=== PATIENT | female | born 1960 | race Caucasian/White ===

== ENCOUNTER → 2016-08-02 | Outpatient (CLI) | payer BC, OTHER ==
[~2016-08-02] MED LIST: CEPH-571 PO; CHOL100010 PO; FLAX1CAP11 PO; LEVO75TA5 PO; LORA10CA2 PO; MULT-506 PO; NXM/40 PO; TRAM-10 PO
--- NOTE | 2016-08-02 16:45 | MAMMOGRAPHY REPORT ---
BILATERAL DIGITAL SCREENING MAMMOGRAM TOMOSYNTHESIS WITH CAD: 08/02/2016 TECHNIQUE: Breast tomosynthesis in addition to standard 2D mammography was performed. Current study was also evaluated with a Computer Aided Detection (CAD) system. COMPARISON: Comparison is made to exams dated: 07/31/2015 mammogram, 07/28/2013 mammogram, 07/29/2014 dea mogram, 07/27/2012 mammogram, and 07/19/2010 mammogram - [facility]. BREAST COMPOSITION: The tissue of both breasts is almost entirely fatty. FINDINGS: No suspicious masses, calcifications, or areas of architectural distortion are noted in e ither breast. There has been no significant interval change compared to prior exams. IMPRESSION: ACR BI-RADS CATEGORY 1: NEGATIVE There is no mammographic evidence of malignancy. A 1 year screening mammogram is recommended. The p atient will receive written notification of the results. Approximately 10% of breast cancers are not detected with mammography. A negative mammographic repor t should not delay biopsy if a clinically suggestive mass is present. Lilian Higuera M.D. ah/:08/02/2016 16:15:53 Material Processor: Génesis KWONG(R)(M), [facility] letter sent: Normal 1/2 BI-RADS Code: ACR BI-RADS Category 1: Negative
== END | disposition home or self-care (01) ==
LOC: C.MAMM 14:23
PROVIDERS: ATTEND Obstetrics & Gynecology
DX: Z12.31 Encounter for screening mammogram for malignant neoplasm of breast (principal)

== ENCOUNTER 2017-03-24 19:22 | Emergency (ER) | payer BC, OTHER ==
[~2017-03-24] VITALS: Ht 157.5 cm; Wt 114.0 kg
[~2017-03-24 19:22] MED LIST changes: -CEPH-571 PO; -NXM/40 PO; -TRAM-10 PO
[2017-03-24 19:35] VITALS: TEMP 36.8; Ht 157.5 cm; Wt 114.0 kg
[2017-03-24] MEDS ORDERED: TRAMADOL HCL 50 MG TAB PO STA (20:26)
[2017-03-24] MEDS ORDERED: ACETAMINOPHEN 500 MG TAB PO STA (20:26)
[2017-03-24] MEDS ORDERED: SODIUM CHLORIDE 0.9% 1000ML 1,000 ML IV STA (20:26)
[2017-03-24] MEDS ORDERED: KETOROLAC TROMETHAMINE 30 MG/ML VIAL IV STA (20:26)
[2017-03-24 20:34] LABS: BASO % 0.4 %; BASO ABS # 0.03 K/uL (0-0.2); COMPLETE YES; IG% 0.1 %; LYMPH % 32.2 %; LYMPH ABS # 2.27 K/uL (1.2-3.4); MEAN CORPUSCULAR HEMOGLOBIN 30.8 pg (25-34); MEAN CORPUSCULAR HGB CONC 33.5 g/dl (32-36); MEAN PLATELET VOLUME 10.5 fL (7.4-10.4); MONO % 5.5 %; NEUT % 59.8 %; PLATELET COUNT 282 K/uL (130-400); WHITE BLOOD COUNT 7.06 K/uL (4.8-10.8)
--- NOTE | 2017-03-24 20:50 | DIAGNOSTIC IMAGING REPORT ---
CHEST ONE VIEW PORTABLE CLINICAL HISTORY: Flank pain. Hematuria. COMPARISON STUDY: Chest radiograph August 01, 2012. FINDINGS: A calcific density along the superolateral aspect of the left humeral head likely reflects calcific tendinitis of the left rotator cuff. There is no pneumothorax or pleural effusion. There is no consolidation. Linear left lung opacities suggests subsegmental atelectasis. Cardiomediastinal silhouette is normal. There is no evidence of pulmonary edema. IMPRESSION: No acute cardiopulmonary findings. Electronically signed by: Alex Omalley M.D. 03/24/2017 8:49 PM Dictated Date/Time: 03/24/2017 8:48 PM
[2017-03-24 20:55] LABS: BUN/CREATININE RATIO 9.5 (10-20); CALCIUM 10.1 mg/dl (8.5-10.1); CREATININE 0.63 mg/dl (0.60-1.20); POTASSIUM 3.5 mmol/L (3.5-5.1)
--- NOTE | 2017-03-24 21:08 | EMERGENCY ROOM VISIT NOTE ---
History Report prepared by Aneudy: Vidal Ríos Under the Supervision of: Dr. Edward Shepherd M.D. First contact with patient: 19:58 Chief Complaint: FLANK PAIN Stated Complaint: SEVERE PAIN L SIDE History of Present Illness The patient is a 56 year old white female with a past medical history of hyperthyroid, acid reflux, cholecystectomy, tubal ligation, and carpal tunnel who presents to the ED with a cc of waxing/waning left flank pain beginning four days ago. She rates her pain as an 8/10 and admits that her symptoms are relieved with rest. She reports that her pain starts in her left back and radiates to her left abdomen. The patient admits that she has been using Bengay and Tylenol, but denies relief of symptoms. She reports that she believed her symptoms were getting better, but admits that her symptoms worsened today. The patient states that her last bowel movement was at 1300 and admits it was diarrhea. She reports she has been urinating normally. Positive diarrhea. Negative cough, fevers, chills, alcohol/tobacco/drug use, rash, LE swelling, urinary symptoms. Source of History: patient Onset: two days ago Position: other (left flank) Symptom Intensity: 8/10 Timing: waxes/wanes Modifying Factors (Relieving): tylenol, other (Bengay) Associated Symptoms: + abdominal pain, + diarrhea, No fevers, No chills, No cough, No urinary symptoms, No rash Review of Systems See HPI for pertinent positives and negatives. A total of ten systems were reviewed and were otherwise negative. Past Medical & Surgical Medical Problems: (1) Gastroesophageal reflux disease (2) Skin problems Family History Patient reports no known family medical history. Social History Smoking Status: Never Smoker Smokeless Tobacco Use: No Alcohol Use: none Drug Use: none Marital Status: Housing Status: lives with family Occupation Status: employed Current/Historical Medications Scheduled Cephalexin (Keflex), 1 CAP PO BID Cholecalciferol (Vitamin D), 1,000 INTER.UNIT PO QAM Esomeprazole Magnesium (Nexium), 40 MG PO DAILY Flaxseed (Linseed) (Flax Seed Oil), 1 CAP PO QAM Levothyroxine Sodium (Levothyroxine Sodium), 1 TAB PO QAM Loratadine (Claritin), 10 MG PO HS Multivitamin (Multivitamin), 1 TAB PO QAM Scheduled PRN Tramadol (Ultram), 50 MG PO Q8H PRN for Pain Allergies Coded Allergies: No Known Allergies (Verified , 03/24/17) Uncoded Allergies: NKDA (Allergy, Unknown, 12/14/03) Physical Exam Vital Signs Date Time Temp Pulse Resp B/P (MAP) Pulse Ox O2 Delivery O2 Flow Rate FiO2 03/24/17 22:07 66 18 122/71 96 03/24/17 21:08 68 03/24/17 20:53 68 18 123/47 98 Room Air 03/24/17 19:35 36.8 66 20 97 Room Air Physical Exam GENERAL: Awake, alert, well-appearing, NAD HENT: Normocephalic, atraumatic. EYES: Normal conjunctiva. Sclera non-icteric. NECK: Supple. No nuchal rigidity. FROM. RESPIRATORY: CTAB, no rhonchi, wheezing, crackles CARDIAC: RRR, no MRG ABDOMEN: Soft, ND, BS+, Mild reproducible RUQ TTP. No pain in ribs. No focal tenderness in any other area. No swelling. MSK: No chest wall TTP, no LE edema NEURO: GCS 15, CN 2-12 intact, moves all 4s on command SKIN: No rash or jaundice noted. No eruption. Medical Decision & Procedures ER Provider Diagnostic Interpretation: X-ray: Per my interpretation, radiologist review. CHEST ONE VIEW PORTABLE CLINICAL HISTORY: Flank pain. Hematuria. COMPARISON STUDY: Chest radiograph August 01, 2012. FINDINGS: A calcific density along the superolateral aspect of the left humeral head likely reflects calcific tendinitis of the left rotator cuff. There is no pneumothorax or pleural effusion. There is no consolidation. Linear left lung opacities suggests subsegmental atelectasis. Cardiomediastinal silhouette is normal. There is no evidence of pulmonary edema. IMPRESSION: No acute cardiopulmonary findings. Electronically signed by: Alex Omalley M.D. 03/24/2017 8:49 PM Dictated Date/Time: 03/24/2017 8:48 PM Laboratory Results 03/24/17 20:20 Red Blood Count 5.00, Mean Corpuscular Volume 92.0, Mean Corpuscular Hemoglobin 30.8, Mean Corpuscular Hemoglobin Concent 33.5, Mean Platelet Volume 10.5, Neutrophils (%) (Auto) 59.8, Lymphocytes (%) (Auto) 32.2, Monocytes (%) (Auto) 5.5, Eosinophils (%) (Auto) 2.0, Basophils (%) (Auto) 0.4, Neutrophils # (Auto) 4.22, Lymphocytes # (Auto) 2.27, Monocytes # (Auto) 0.39, Eosinophils # (Auto) 0.14, Basophils # (Auto) 0.03 03/24/17 20:20 Test 03/24/17 20:20 03/24/17 20:43 03/24/17 20:53 White Blood Count 7.06 K/uL (4.8-10.8) Red Blood Count 5.00 M/uL (4.2-5.4) Hemoglobin 15.4 g/dL (12.0-16.0) Hematocrit 46.0 % (37-47) Mean Corpuscular Volume 92.0 fL (80-100) Mean Corpuscular Hemoglobin 30.8 pg (25-34) Mean Corpuscular Hemoglobin Concent 33.5 g/dl (32-36) Platelet Count 282 K/uL (130-400) Mean Platelet Volume 10.5 fL (7.4-10.4) Neutrophils (%) (Auto) 59.8 % Lymphocytes (%) (Auto) 32.2 % Monocytes (%) (Auto) 5.5 % Eosinophils (%) (Auto) 2.0 % Basophils (%) (Auto) 0.4 % Neutrophils # (Auto) 4.22 K/uL (1.4-6.5) Lymphocytes # (Auto) 2.27 K/uL (1.2-3.4) Monocytes # (Auto) 0.39 K/uL (0.11-0.59) Eosinophils # (Auto) 0.14 K/uL (0-0.5) Basophils # (Auto) 0.03 K/uL (0-0.2) RDW Standard Deviation 45.6 fL (36.4-46.3) RDW Coefficient of Variation 13.5 % (11.5-14.5) Immature Granulocyte % (Auto) 0.1 % Immature Granulocyte # (Auto) 0.01 K/uL (0.00-0.02) Anion Gap 8.0 mmol/L (3-11) Est Creatinine Clear Calc Drug Dose 117.7 ml/min Estimated GFR () 115.4 Estimated GFR (Non- 99.6 BUN/Creatinine Ratio 9.5 (10-20) Calcium Level 10.1 mg/dl (8.5-10.1) Total Bilirubin 0.6 mg/dl (0.2-1) Direct Bilirubin 0.2 mg/dl (0-0.2) Aspartate Amino Transf (AST/SGOT) 23 U/L (15-37) Alanine Aminotransferase (ALT/SGPT) 37 U/L (12-78) Alkaline Phosphatase 65 U/L (45-117) Total Protein 8.6 gm/dl (6.4-8.2) Albumin 4.2 gm/dl (3.4-5.0) Lipase 188 U/L (73-393) Bedside Troponin I < 0.030 ng/ml (0-0.045) Urine Color YELLOW Urine Appearance CLEAR (CLEAR) Urine pH 6.0 (4.5-7.5) Urine Specific [place] 1.009 (1.000-1.030) Urine Protein NEG (NEG) Urine Glucose (UA) NEG (NEG) Urine Ketones TRACE (NEG) Urine Occult Blood NEG (NEG) Urine Nitrite NEG (NEG) Urine Bilirubin NEG (NEG) Urine Urobilinogen NEG (NEG) Urine Leukocyte Esterase MODERATE (NEG) Urine WBC (Auto) 10-30 /hpf (0-5) Urine RBC (Auto) 0-4 /hpf (0-4) Urine Hyaline Casts (Auto) 0 /lpf (0-5) Urine Epithelial Cells (Auto) 10-20 /lpf (0-5) Urine Bacteria (Auto) NEG (NEG) Laboratory results reviewed by me Medications Administered Medications (Trade) Dose Ordered Sig/Gokul Route Start Time Stop Time Status Last Admin Dose Admin Sodium Chloride 1,000 ml @ 999 mls/hr Q1H1M STAT IV 03/24/17 20:26 03/24/17 21:26 DC 03/24/17 20:43 999 MLS/HR Ketorolac Tromethamine (Toradol Inj) 30 mg NOW STAT IV 03/24/17 20:26 03/24/17 20:28 DC 03/24/17 20:44 30 MG Acetaminophen (Tylenol Tab) 1,000 mg NOW STAT PO 03/24/17 20:26 10/2/17 20:28 DC 03/24/17 20:44 1,000 MG Tramadol HCl (Ultram Tab) 25 mg NOW STAT PO 03/24/17 20:26 03/24/17 20:28 DC 03/24/17 20:44 25 MG Cephalexin Monohydrate (Keflex Cap) 500 mg NOW ONCE PO 03/24/17 21:30 03/24/17 21:31 DC 03/24/17 21:33 500 MG ECG Indication: back/shoulder pain Rate (beats per minute): 65 Rhythm: normal sinus Findings: T-wave inversion (Inferior, AVF), left axis deviation, other (Normal intervals. T Wave flattening laterally. AVF.) Comparison ECG Date: 08/01/12 Change: no significant change Change: AVF TWI may be new. ED Course 2008: The patient was evaluated in room C07. A complete history and physical exam was performed. 2147: I reevaluated the patient. Discussed results and discharge instructions: She verbalized understanding and agreement. The patient is ready for discharge. Medical Decision Differential diagnosis: Etiologies such as appendicitis, diverticulitis, PUD, biliary pathology, UTI, pancreatitis, obstruction, mesenteric ischemia, aortic pathology, infections, inflammatory bowel disease, renal colic, PNA, URI, Bronchitis, Shingles, as well as others were entertained. Patient was seen and evaluated the bedside. Patient is very well-appearing. Patient has no prior history of kidney stones. Patient is not noted any rashes. Patient did have blood work, EKG, troponin, chest x-ray. Patient did not have any abnormalities on her blood work. LFTs and lipase were within normal limits. Patient did not have any blood in her urine. Patient did have questionable UTI although possibly a contaminant. I explained this to the patient she was given her first dose of antibiotic was told to take this at home. Patient was told that given her normal kidney function w/o blood in urine , less likely stone. Patient was told to watch for skin manifestations in event she does develop shingles. Patient was able tolerate by mouth without issue. Patient a negative chest x-ray. Patient's EKG did show a new T-wave inversion however she also had an old one. Patient was informed of this finding was told to follow-up with her PCP. Patient had a negative troponin given the chronicity of her symptoms with a negative troponin less likely ACS. Patient Wells 0, less likely PE. Patient was given strict follow-up, discharge, and return precautions. Patient discharged home. Medication Reconcilliation Current Medication List: was personally reviewed by me Blood Pressure Screening Patient's blood pressure: Normal blood pressure Impression Primary Impression: Left flank pain Additional Impression: UTI (urinary tract infection) Scribe Attestation The scribe's documentation has been prepared under my direction and personally reviewed by me in its entirety. I confirm that the note above accurately reflects all work, treatment, procedures, and medical decision making performed by me. Departure Information Dispostion Home / Self-Care Prescriptions Tramadol (Ultram) 50 Mg Tab 50 MG PO Q8H Y for Pain, #9 TAB Prov: Edward Shepherd M.D. 03/24/17 Cephalexin (KEFLEX) 500 Mg Cap 1 CAP PO BID for 7 Days, #14 CAP Prov: Edward Shepherd M.D. 03/24/17 Referrals Robby Yin M.D. (PCP) Forms HOME CARE DOCUMENTATION FORM, IMPORTANT VISIT INFORMATION Patient Instructions ED Flank Pain Uncertain Cause, ED UTI Cystitis Female, [facility] Additional Instructions Please return to the emergency department if you have worsening or recurrent symptoms not amenable to at-home treatment. Please call for a follow-up appointment with her primary care physician. Please take your medications as prescribed. If you have other concerns and/or complaints please feel free to also call your primary care physician's office or return the ED for further evaluation, management, and treatment. You may take 600 mg Ibuprofen every 6 hours as needed for pain with food for no more than 2 consecutive days. You may take tylenol 1000mg every 6 hours as needed for pain. You may take motrin and tylenol separately or at the same time. Take tramadol for breakthrough pain. You have been examined and treated today on an emergency basis only. This is not a substitute for, or an effort to provide, complete comprehensive medical care. It is impossible to recognize and treat all injuries or illnesses in a single emergency department visit. It is therefore important that you follow up closely with [facility]. Call as soon as possible for an appointment. Thank you for your time and consideration. I look forward to speaking with you again soon. Please don't hesitate to call us if you have any questions. Problem Qualifiers Additional Impression: UTI (urinary tract infection) Urinary tract infection type: acute cystitis Hematuria presence: without hematuria Qualified Codes: N30.00 - Acute cystitis without hematuria
[2017-03-24 21:09] LABS: URINE APPEARANCE CLEAR (CLEAR); URINE BILIRUBIN NEG (NEG); URINE COLOR YELLOW; URINE NITRITE NEG (NEG); URINE SPECIFIC GRAVITY 1.009 (1.000-1.030); UROBILINOGEN NEG (NEG)
[2017-03-24 21:12] LABS: MANUAL MICROSCOPIC REQUIRED? NO; REVIEW REQ? NO
[2017-03-24] MEDS ORDERED: NXM/40 PO (21:26)
[2017-03-24] MEDS ORDERED: CEPHALEXIN MONOHYDRATE 250 MG CAP PO ONE (21:30)
[2017-03-24] MEDS ORDERED: CEPH-571 PO (21:34)
[2017-03-24] MEDS ORDERED: TRAM-10 PO (21:34)
[2017-03-24 22:07] VITALS: BP 122/71; PULSE 66; O2SAT 96
== END 2017-03-24 22:08 | disposition home or self-care (01) ==
LOC: C.EDB 19:23 → C.EDC 22:08
DX: N39.0 Urinary tract infection, site not specified (principal); E05.90 Thyrotoxicosis, unspecified without thyrotoxic crisis or storm; K21.9 Gastro-esophageal reflux disease without esophagitis; Z90.49 Acquired absence of other specified parts of digestive tract; Z98.51 Tubal ligation status; Z79.899 Other long term (current) drug therapy

== ENCOUNTER → 2017-06-04 | Day surgery (SDC) | payer BC, OTHER ==
[2017-05-28 15:15] VITALS: Ht 157.5 cm; Wt 112.3 kg
[~2017-06-04] VITALS: Ht 157.5 cm; Wt 112.3 kg
[~2017-06-04] MED LIST changes: +LIDOCAINE HCL 2% 2 ML VIAL (20MG/ML) ONE; +NXM/40 PO; +PROPOFOL IV EMULSION 10 MG/ML 20 ML VIAL IV ONE; +SUCR5SUS PO
--- NOTE | 2017-06-04 12:15 | Endo History and Physical ---
History & Physical Date of Service: Jun 04, 2017. Chief Complaint: epigastric burning sensation Referring Physician: Dr. Yin History of Present Illness epigastric pain Past Surgical History Hx Cardiac Surgery: No Hx Internal Defibrillator: No Hx Pacemaker: No Hx Abdominal Surgery: Yes (TUBAL LIGATION, LAP HEATHER) Hx of Implantable Prosthesis: No Hx Post-Op Nausea and Vomiting: No Hx Cancer Surgery: No Hx Thoracic Surgery: No Hx Orthopedic: Yes (RT/LEFT CTR) Hx Urinary Tract Surgery: No Family History None Social History Smoking Status: Never Smoker Hx Substance Use: No Hx Alcohol Use: Yes (OCCASIONALLY) Allergies Coded Allergies: No Known Allergies (Verified , 06/04/17) Uncoded Allergies: NKDA (Allergy, Unknown, 12/14/03) Current Medications Reported Home Medications Medications Dose Route/Sig Max Daily Dose Days Date Category Carafate (Sucralfate) 1 Gm/10 Ml Susp 1 Gm PO BID 05/28/17 Reported Vitamin D (Cholecalciferol) 1,000 Unit Tab 1 Tab PO QAM 05/28/17 Reported Nexium (Esomeprazole Magnesium) 40 Mg Capcr 40 Mg PO QAM 03/24/17 Reported Flax Seed Oil (Flaxseed (Linseed)) 1 Cap Cap 1 Cap PO QAM 01/10/16 Reported Multivitamin (Multivitamins) Tab 1 Tab PO QAM 01/10/16 Reported Claritin (Loratadine) 10 Mg Cap 10 Mg PO HS 01/10/16 Reported Levothyroxine Sodium 75 Mcg Tab 1 Tab PO QAM 90 01/10/16 Reported Vital Signs Weight (Kilograms): 112.27 Height (Feet): 5 Height (Inches): 2 Date Time Temp Pulse Resp B/P (MAP) Pulse Ox O2 Delivery O2 Flow Rate FiO2 06/04/17 12:07 36.7 71 18 139/67 (91) 98 Room Air Physical Exam General Appearance: WD/WN, no apparent distress Assessment and Plan EGD today
--- NOTE | 2017-06-04 12:43 | Discharge Instructions ---
Endoscopy Patient Instructions Date / Procedure(s) Performed Jun 04, 2017. EGD Allergy Information Coded Allergies: No Known Allergies (Verified , 06/04/17) Uncoded Allergies: NKDA (Allergy, Unknown, 12/14/03) Discharge Date / Findings Jun 04, 2017. normal endoscopy Medication Instructions Restart Stopped Medication(s): OK to resume all medications as above Provider Instructions Activity Restrictions - No exercising or heavy lifting for 24 hours. - Do not drink alcohol the day of the procedure. - Do not drive a car or operate machinery until the day after the procedure. - Do not make any important decisions or sign important papers in 24 hours after the procedure. Following Day: - Return to full activity which may include returning to work/school. Diet Start your diet with liquids and light foods (jello, soup, juice, toast). Then eat your usual diet if not nauseated. Treatment For Common After Affects For mild abdominal pain, bloating, or excessive gas: - Rest - Eat lightly - Lie on right side Follow-Up Information Follow-up with Dr. Yin as scheduled Anesthesia Information What You Should Know You have had a procedure that required some medicine to reduce anxiety and discomfort. This treatment is called moderate sedation. After receiving the treatment, you may be sleepy, but you will be able to breathe on your own. The effects of the treatment may last for several hours. Follow these instructions along with Activity/Diet recommendations noted above: * Do NOT do anything where dizziness or clumsiness would be dangerous. * Rest quietly at home today, then you can be up and about tomorrow. * Have a responsible person stay with you the rest of today. * You may have had an I.V. today. If so, you may take the dressing off later today. Recommendations Call your doctor if: * Trouble breathing * Continuous vomiting for more than 24 hours * Temperature above 101 degrees * Severe abdominal pain or bloating * Pain not relieved by pain medicine ordered * There is increased drainage or redness from any incision * A large amount of rectal bleeding greater than 2-3 tablespoons. (If you had a polyp/s removed or have hemorrhoids, a small amount of blood - from the rectum is to be expected.) * You have any unanswered questions or concerns. IN THE EVENT OF A SERIOUS EMERGENCY, GO TO THE NEAREST EMERGENCY ROOM Your discharge instructions were prepared by provider Fiorella Bacon. Patient Instructions Signature Page Codi Sidchaddmanasa Patient (or Guardian) Signature/Date: I have read and understand the instructions given to me by my caregivers. Caregiver/RN/Doctor Signature/Date: The above-named patient and/or guardian has received patient instructions on this date. + Original Patient Signature Page (only) stays with chart. Please make copy for patient.
--- NOTE | 2017-06-04 12:51 | GI REPORT ---
Procedure Date: 06/04/2017 12:12 PM Procedure: Upper GI endoscopy Indications: Epigastric abdominal pain, Heartburn Medicines: Propofol per Anesthesia Complications: No immediate complications. Estimated blood loss: Minimal. Estimated Blood Loss: Estimated blood loss: none. Procedure: Pre-Anesthesia Assessment: - Prior to the procedure, a History and Physical was performed, and patient medications, allergies and sensitivities were reviewed. The patient's tolerance of previous anesthesia was reviewed. - The risks and benefits of the procedure and the sedation options and risks were discussed with the patient. All questions were answered and informed consent was obtained. - Patient identification and proposed procedure were verified prior to the procedure by the physician and the nurse. The procedure was verified in the pre-procedure area in the procedure room. - Mental Status Examination: alert and oriented. Airway Examination: normal oropharyngeal airway and neck mobility. Respiratory Examination: clear to auscultation. CV Examination: normal. Abdominal Examination: bowel sounds present, abdomen soft and non-tender, no masses or organomegaly noted. - ASA Grade Assessment: III - A patient with severe systemic disease. After obtaining informed consent, the endoscope was passed under direct vision. Throughout the procedure, the patient's blood pressure, pulse, and oxygen saturations were monitored continuously. The scope was introduced through the mouth, and advanced to the second part of duodenum. The upper GI endoscopy was accomplished without difficulty. The patient tolerated the procedure well. Findings: The esophagus was normal. The entire examined stomach was normal. Biopsies were taken with a cold forceps for Helicobacter pylori testing. Verification of patient identification for the specimen was done by the physician and nurse using the patient's name and date. Estimated blood loss was minimal. The examined duodenum was normal. Impression: - Normal esophagus. - Normal stomach. Biopsied. - Normal examined duodenum. Recommendation: - Await pathology results. - Follow an antireflux regimen. - Continue present medications. - Return to referring physician as previously scheduled. - Discharge patient to home. Fiorella Bacon D.O. Fiorella Bacon, 06/04/2017 12:50:32 PM This report has been signed electronically. Note Initiated On: 06/04/2017 12:12 PM I attest to the content of the Intraoperative Record and orders documented therein, exceptions below
--- NOTE | 2017-06-04 12:57 | Anesthesiology Progress Note ---
Anesthesia Post Op Note Date & Time Jun 04, 2017 at 12:57 Vital Signs Pain Intensity: 0 Vital Signs Past 12 Hours Date Time Temp Pulse Resp B/P (MAP) Pulse Ox O2 Delivery O2 Flow Rate FiO2 06/04/17 12:55 70 20 124/82 (96) 98 Room Air 06/04/17 12:07 36.7 71 18 139/67 (91) 98 Room Air Notes Mental Status: alert / awake / arousable, participated in evaluation Pt Amnestic to Procedure: Yes Nausea / Vomiting: adequately controlled Pain: adequately controlled Airway Patency, RR, SpO2: stable & adequate BP & HR: stable & adequate Hydration State: stable & adequate Anesthetic Complications: no major complications apparent
[2017-06-04 13:27] VITALS: BP 144/82; PULSE 65; O2SAT 98
== END | disposition home or self-care (01) ==
LOC: C.GI 11:47
PROVIDERS: ATTEND Internal Medicine
DX: R10.13 Epigastric pain (principal); K29.50 Unspecified chronic gastritis without bleeding; Z90.49 Acquired absence of other specified parts of digestive tract; Z98.51 Tubal ligation status; K21.9 Gastro-esophageal reflux disease without esophagitis; E03.9 Hypothyroidism, unspecified; E66.9 Obesity, unspecified

== ENCOUNTER → 2017-08-08 | Outpatient (CLI) | payer BC, OTHER ==
[~2017-08-08] MED LIST changes: -LIDOCAINE HCL 2% 2 ML VIAL (20MG/ML) ONE; -PROPOFOL IV EMULSION 10 MG/ML 20 ML VIAL IV ONE
--- NOTE | 2017-08-11 14:50 | MAMMOGRAPHY REPORT ---
BILATERAL DIGITAL SCREENING MAMMOGRAM TOMOSYNTHESIS WITH CAD: 08/08/2017 TECHNIQUE: Breast tomosynthesis in addition to standard 2D mammography was performed. Current study was also evaluated with a Computer Aided Detection (CAD) system. COMPARISON: Comparison is made to exams dated: 08/02/2016 mammogram, 07/31/2015 mammogram, 07/29/2014 dea mogram, 07/28/2013 mammogram, 07/27/2012 mammogram, and 07/19/2010 ultrasound - [facility]. BREAST COMPOSITION: The tissue of both breasts is almost entirely fatty. FINDINGS: No suspicious masses, calcifications, or areas of architectural distortion are noted in ei ther breast. There has been no significant interval change compared to prior exams. IMPRESSION: ACR BI-RADS CATEGORY 1: NEGATIVE There is no mammographic evidence of malignancy. A 1 year screening mammogram is recommended. The pa tient will receive written notification of the results. Approximately 10% of breast cancers are not detected with mammography. A negative mammographic report should not delay biopsy if a clinically suggestive mass is present. Lilian Higuera M.D. ah/:08/08/2017 14:58:37 Software Business Analyst: Nicole Noonan RT(R)(M), [facility] letter sent: Normal 1/2 BI-RADS Code: ACR BI-RADS Category 1: Negative
== END | disposition home or self-care (01) ==
LOC: C.MAMM 14:04
PROVIDERS: ATTEND Obstetrics & Gynecology
DX: Z12.31 Encounter for screening mammogram for malignant neoplasm of breast (principal)